=== PATIENT | female | born 1975 | race Caucasian/White ===

== ENCOUNTER 2020-02-18 14:34 | Emergency (ER) | payer BC, OTHER ==
[~2020-02-18] VITALS: Ht 157.5 cm; Wt 59.0 kg
[2020-02-18 14:47] VITALS: BP 164/91
[2020-02-18] MEDS ORDERED: NYST1000 PO (15:58)
== END 2020-02-18 16:15 | disposition home or self-care (01) ==
LOC: ER 14:35
DX: K14.6 Glossodynia (principal); Z88.1 Allergy status to other antibiotic agents; Z79.899 Other long term (current) drug therapy
CPT/HCPCS: 99283

== ENCOUNTER 2020-04-18 10:39 | Outpatient (CLI) | payer BC ==
[2020-04-18 11:20] LABS: BASOPHILS # (AUTO) 0.1 X10'3 (0-0.2); BASOPHILS % (AUTO) 1.2 % (0-1); EOSINOPHILS # (AUTO) 0.2 X10'3 (0-0.9); EOSINOPHILS % (AUTO) 3.5 % (0-6); HEMATOCRIT 34.6 % (35.0-45.0); HEMOGLOBIN 10.9 g/dl (12.0-16.0); LYMPHOCYTES # (AUTO) 1.8 X10'3 (1.1-4.8); MEAN CORPUSCULAR HEMOGLOBIN 24.9 PG (27.0-31.0); MEAN CORPUSCULAR HGB CONC 31.5 g/dL (33.0-36.5); MEAN PLATELET VOLUME 10.7 FL (7.4-10.4); MONOCYTES # (AUTO) 0.4 X10'3 (0-0.9); MONOCYTES % (AUTO) 7.9 % (2-12); NEUTROPHILS # (AUTO) 2.6 X10'3 (1.8-7.7); NEUTROPHILS % (AUTO) 51.4 % (42-75); PLATELET COUNT 236 X10'3 (140-440); RED BLOOD COUNT 4.38 X10'6 (4.20-5.60); RED CELL DISTRIBUTION WIDTH 18.3 % (11.5-14.5)
[2020-04-18 11:22] LABS: CLARITY,URINE CLOUDY (Clear); COLOR,URINE YELLOW (Yellow); GLUCOSE, URINE NEGATIVE (Neg); KETONES,URINE NEGATIVE (Neg); LEUKOCYTE ESTERASE ,URINE NEGATIVE (Neg); NITRITES, URINE NEGATIVE (Neg); OCCULT BLOOD,URINE TRACE-INTACT (Neg); PH,URINE 5.5 (4.8-8.0); PROTEIN,URINE NEGATIVE (Neg); UROBILINOGEN,URINE 0.2 E.U/dL (0.2-1.0)
[2020-04-18 11:29] LABS: UA COLLECTION TYPE NON-SPECIFIED
[2020-04-18 11:31] LABS: SQUAMOUS EPITHELIAL CELL,UR MANY /LPF (FEW)
[2020-04-18 11:32] LABS: BACTERIA,URINE 2+ /HPF (Neg)
[2020-04-18 11:33] LABS: RBC,URINE 0-2 /HPF (0-2); WBC,URINE 0-4 /HPF (0-4)
[2020-04-18 11:43] LABS: ANISOCYTOSIS 2+; LARGE PLATELETS FEW; MICROCYTOSIS 1+; PLATELET ESTIMATE NORMAL
[2020-04-18 11:44] LABS: ELLIPTOCYTES 1+
[2020-04-18 11:51] LABS: ALANINE AMINOTRANSFERASE 21 U/L (12-78); ALBUMIN 3.5 G/DL (3.4-5.0); ALKALINE PHOSPHATASE 53 IU/L (46-116); ANION GAP 9 (8-16); ASPARTATE AMINO TRANSFERASE 13 U/L (10-37); BILIRUBIN,TOTAL 0.4 MG/DL (0.1-1.0); BLOOD UREA NITROGEN 12 MG/DL (7-18); BUN/CREATININE RATIO 14.3 (6.6-38.0); CALCIUM 8.7 MG/DL (8.5-10.1); CHLORIDE 108 MMOL/L (99-107); CREATININE 0.84 MG/DL (0.40-0.90); GLUCOSE 89 MG/DL (70-104); POTASSIUM 4.5 MMOL/L (3.5-5.1); SODIUM 142 MMOL/L (135-145); TOTAL CARBON DIOXIDE 25.2 MMOL/L (24-32); TOTAL PROTEIN 6.9 G/DL (6.4-8.2); eGFR 73 ML/MIN
== END 2020-04-18 23:59 | disposition home or self-care (01) ==
LOC: EEVIPCON 10:39 → LAB 10:39
PROVIDERS: ATTEND Family Medicine
DX: Z00.01 Encounter for general adult medical examination with abnormal findings (principal)
CPT/HCPCS: 36415; 80053; 81001; 84439; 84443; 85008; 85025

== ENCOUNTER 2020-05-06 14:49 | Outpatient (CLI) | payer BC ==
[2020-05-06 16:29] LABS: % IRON SATURATION 11 % (11-46); IRON 43 UG/DL (49-151); TOTAL IRON BINDING CAPACITY 376 UG/DL (259-388)
== END 2020-05-06 23:59 | disposition home or self-care (01) ==
LOC: LAB 14:49
PROVIDERS: ATTEND Family Medicine
DX: D64.9 Anemia, unspecified (principal)
CPT/HCPCS: 36415; 83540; 83550

== ENCOUNTER 2020-08-29 14:02 | Outpatient (CLI) | payer BC | END 2020-08-29 23:59 | disposition home or self-care (01) | LOC: CARD DIAG 14:02 | PROVIDERS: ATTEND Nurse Practitioner Family | DX: I35.1 Nonrheumatic aortic (valve) insufficiency (principal) | CPT/HCPCS: 93306 ==

== ENCOUNTER 2020-09-03 05:26 | Outpatient (CLI) | payer BC ==
[2020-09-03 06:03] LABS: ALANINE AMINOTRANSFERASE 17 U/L (12-78); ALBUMIN 3.5 G/DL (3.4-5.0); ALKALINE PHOSPHATASE 56 IU/L (46-116); ANION GAP 8 (8-16); ASPARTATE AMINO TRANSFERASE 14 U/L (10-37); BILIRUBIN,TOTAL 0.2 MG/DL (0.1-1.0); BLOOD UREA NITROGEN 8 MG/DL (7-18); BUN/CREATININE RATIO 9.1 (6.6-38.0); CALCIUM 8.3 MG/DL (8.5-10.1); CHLORIDE 108 MMOL/L (99-107); CHOL/HDL RATIO 3.3 (0.00-4.99); CHOLESTEROL 214 MG/DL (0-200); CREATININE 0.88 MG/DL (0.40-0.90); GLUCOSE 96 MG/DL (70-104); HDL CHOLESTEROL 64 MG/DL (35-60); LDL CHOLESTEROL 122 MG/DL (50-100); SODIUM 144 MMOL/L (135-145); TOTAL CARBON DIOXIDE 28.1 MMOL/L (24-32); TRIGLYCERIDES 94 MG/DL (20-135); eGFR 69 ML/MIN
== END 2020-09-03 23:59 | disposition home or self-care (01) ==
LOC: LAB 05:26
PROVIDERS: ATTEND Nurse Practitioner Family
DX: R00.2 Palpitations (principal)
CPT/HCPCS: 36415; 80053; 80061

== ENCOUNTER 2020-09-11 11:38 | Emergency (ER) | payer BC ==
[~2020-09-11] VITALS: Ht 157.5 cm; Wt 60.9 kg
[2020-09-11 12:09] LABS: BASOPHILS % (AUTO) 0.4 % (0-1); EOSINOPHILS # (AUTO) 0.2 X10'3 (0-0.9); EOSINOPHILS % (AUTO) 2.3 % (0-6); HEMOGLOBIN 11.8 g/dl (12.0-16.0); LYMPHOCYTES # (AUTO) 3.1 X10'3 (1.1-4.8); LYMPHOCYTES % (AUTO) 29.4 % (21-51); MEAN CORPUSCULAR HEMOGLOBIN 25.4 PG (27.0-31.0); MEAN CORPUSCULAR VOLUME 79.4 FL (78-98); MEAN PLATELET VOLUME 10.6 FL (7.4-10.4); MONOCYTES # (AUTO) 0.7 X10'3 (0-0.9); MONOCYTES % (AUTO) 6.9 % (2-12); NEUTROPHILS # (AUTO) 6.4 X10'3 (1.8-7.7); PLATELET COUNT 253 X10'3 (140-440); RED BLOOD COUNT 4.66 X10'6 (4.20-5.60); RED CELL DISTRIBUTION WIDTH 17.7 % (11.5-14.5); WHITE BLOOD COUNT 10.4 X10'3 (4.5-11.0)
[2020-09-11 12:24] LABS: ALANINE AMINOTRANSFERASE 21 U/L (12-78); ALBUMIN 3.9 G/DL (3.4-5.0); ALBUMIN/GLOBULIN RATIO 1.1 (1.1-1.5); ALKALINE PHOSPHATASE 55 IU/L (46-116); ANION GAP 13 (8-16); ASPARTATE AMINO TRANSFERASE 14 U/L (10-37); BILIRUBIN,TOTAL 0.3 MG/DL (0.1-1.0); BLOOD UREA NITROGEN 9 MG/DL (7-18); CALCIUM 9.1 MG/DL (8.5-10.1); CHLORIDE 104 MMOL/L (99-107); CREATININE 0.82 MG/DL (0.40-0.90); GLUCOSE 103 MG/DL (70-104); SODIUM 139 MMOL/L (135-145); TOTAL CARBON DIOXIDE 22.2 MMOL/L (24-32); TOTAL PROTEIN 7.5 G/DL (6.4-8.2); eGFR 75 ML/MIN
[2020-09-11 12:35] LABS: ANISOCYTOSIS 1+; ELLIPTOCYTES 1+; LARGE PLATELETS FEW; MICROCYTOSIS 1+; PLATELET ESTIMATE NORMAL; SCHISTOCYTES FEW
[2020-09-11 12:41] LABS: D-DIMER 0.36 MG/L FEU (0-0.50)
[2020-09-11] MEDS ORDERED: ondansetron/PF 4mg/2ml inj IV ONE (13:15)
[2020-09-11] MEDS ORDERED: morphine 4 MG/ML inj SYRINge IV PRN (13:15)
[2020-09-11] MEDS ORDERED: ketorolac trometh. 30mg/ml inj. IV ONE ×2 (13:15→17:20)
[2020-09-11] MEDS ORDERED: fentaNYL/PF 50MCG/1 ML 2ML syringe IV ONE (14:45)
--- NOTE | 2020-09-11 15:00 | NUR ---
PT MEDICATED FOR RIGHT BREAST/CHEST PAIN
[2020-09-11 15:18] VITALS: BP 121/80
[2020-09-11] MEDS ORDERED: HYDR-3972 PO (16:12)
[2020-09-11] MEDS ORDERED: iohexol 300mg/ml 100ml inj. ONE (16:14)
[2020-09-11] MEDS ORDERED: nitroGLYCERIN 0.4mg SUBLingual tab SL PRN (17:00)
[2020-09-11] MEDS ORDERED: HYDROcodone/acetaminophen 10/325mg tab PO ONE (17:20)
[2020-09-11] MEDS ORDERED: methylPREDNISolone sod succ 125mg/2ml vial IV ONE (17:20)
[2020-09-11] MEDS ORDERED: ONDA4TAB6 PO (17:25)
== END 2020-09-11 18:25 | disposition home or self-care (01) ==
LOC: ER 11:38 → EEVIPCON 11:38 → ER 18:25
DX: R07.89 Other chest pain (principal); F17.200 Nicotine dependence, unspecified, uncomplicated; Z88.1 Allergy status to other antibiotic agents; Z88.8 Allergy status to other drugs, medicaments and biological substances
CPT/HCPCS: 36415; 71045; 71260; 80053; 83880; 84484; 85008; 85025; 85379; 93005; 96374; 96375; 99285; J1885; J2270; J2405; J2930; J3010; Q9967

== ENCOUNTER 2020-10-03 14:42 | Outpatient (CLI) | payer BC ==
[~2020-10-03 14:42] MED LIST: ONDA4TAB6 PO
[2020-10-03 16:08] LABS: C-REACTIVE PROTEIN < 0.05 MG/DL (0.0-0.5)
== END 2020-10-03 23:59 | disposition home or self-care (01) ==
LOC: LAB 14:42
PROVIDERS: ATTEND Family Medicine
DX: F41.9 Anxiety disorder, unspecified (principal); R07.9 Chest pain, unspecified; G47.00 Insomnia, unspecified
CPT/HCPCS: 36415; 85651; 86038; 86140

== ENCOUNTER 2021-03-18 08:46 | Emergency (ER) | payer BC ==
[~2021-03-18] VITALS: Ht 157.5 cm; Wt 60.0 kg
[2021-03-18 09:28] VITALS: BP 135/88
[2021-03-18] MEDS ORDERED: dexamethasone sod phosphate 10mg/ml inj PO STA (10:19)
[2021-03-18] MEDS ORDERED: METH4TAB3 PO (10:28)
[2021-03-18] MEDS ORDERED: LIDO20SO16 PO (10:28)
== END 2021-03-18 10:30 | disposition home or self-care (01) ==
LOC: EEVIPCON 08:47 → ER 08:47
DX: J02.9 Acute pharyngitis, unspecified (principal); I48.91 Unspecified atrial fibrillation; Z20.822 Contact with and (suspected) exposure to COVID-19; Z88.1 Allergy status to other antibiotic agents; Z88.8 Allergy status to other drugs, medicaments and biological substances; Z79.899 Other long term (current) drug therapy
CPT/HCPCS: 71045; 87081; 87635; 87880; 99284; C9803; J1100

== ENCOUNTER 2021-04-02 15:15 | Outpatient (CLI) | payer BC ==
[~2021-04-02 15:15] MED LIST changes: +LIDO20SO16 PO; +METH4TAB3 PO
[2021-04-02 16:14] LABS: BASOPHILS % (AUTO) 0.5 % (0-1); EOSINOPHILS # (AUTO) 0.2 X10'3 (0-0.9); EOSINOPHILS % (AUTO) 2.5 % (0-6); HEMATOCRIT 32.3 % (35.0-45.0); HEMOGLOBIN 10.3 g/dl (12.0-16.0); LYMPHOCYTES # (AUTO) 2.1 X10'3 (1.1-4.8); LYMPHOCYTES % (AUTO) 29.8 % (21-51); MEAN CORPUSCULAR HEMOGLOBIN 25.3 PG (27.0-31.0); MEAN CORPUSCULAR VOLUME 79.1 FL (78-98); MEAN PLATELET VOLUME 10.1 FL (7.4-10.4); MONOCYTES # (AUTO) 0.5 X10'3 (0-0.9); MONOCYTES % (AUTO) 7.6 % (2-12); NEUTROPHILS # (AUTO) 4.1 X10'3 (1.8-7.7); NEUTROPHILS % (AUTO) 59.6 % (42-75); PLATELET COUNT 307 X10'3 (140-440); RED BLOOD COUNT 4.08 X10'6 (4.20-5.60); RED CELL DISTRIBUTION WIDTH 18.9 % (11.5-14.5); WHITE BLOOD COUNT 6.9 X10'3 (4.5-11.0)
[2021-04-02 17:27] LABS: ANISOCYTOSIS 2+; MICROCYTOSIS 1+; PLATELET ESTIMATE NORMAL
[2021-04-02 17:28] LABS: ELLIPTOCYTES FEW; SCHISTOCYTES FEW
== END 2021-04-02 23:59 | disposition home or self-care (01) ==
LOC: LAB 15:15
PROVIDERS: ATTEND Family Medicine
DX: Z00.01 Encounter for general adult medical examination with abnormal findings (principal)
CPT/HCPCS: 36415; 83540; 83550; 84439; 84443; 85008; 85025

== ENCOUNTER 2021-07-03 11:30 | Outpatient (CLI) | payer BC ==
[2021-07-03 11:57] LABS: BASOPHILS % (AUTO) 0.7 % (0-1); EOSINOPHILS # (AUTO) 0.4 X10'3 (0-0.9); EOSINOPHILS % (AUTO) 6.2 % (0-6); HEMATOCRIT 35.2 % (35.0-45.0); HEMOGLOBIN 11.2 g/dl (12.0-16.0); LYMPHOCYTES # (AUTO) 2.3 X10'3 (1.1-4.8); LYMPHOCYTES % (AUTO) 36.3 % (21-51); MEAN CORPUSCULAR HEMOGLOBIN 24.6 PG (27.0-31.0); MEAN CORPUSCULAR HGB CONC 31.7 g/dL (33.0-36.5); MEAN CORPUSCULAR VOLUME 77.5 FL (78-98); MEAN PLATELET VOLUME 10.4 FL (7.4-10.4); MONOCYTES # (AUTO) 0.5 X10'3 (0-0.9); MONOCYTES % (AUTO) 7.5 % (2-12); NEUTROPHILS # (AUTO) 3.1 X10'3 (1.8-7.7); NEUTROPHILS % (AUTO) 49.3 % (42-75); PLATELET COUNT 262 X10'3 (140-440); RED BLOOD COUNT 4.55 X10'6 (4.20-5.60); RED CELL DISTRIBUTION WIDTH 18.1 % (11.5-14.5); WHITE BLOOD COUNT 6.4 X10'3 (4.5-11.0)
[2021-07-03 12:07] LABS: CLARITY,URINE SLIGHTLY CLOUDY (Clear); COLOR,URINE YELLOW (Yellow); GLUCOSE, URINE NEGATIVE (Neg); KETONES,URINE NEGATIVE (Neg); LEUKOCYTE ESTERASE ,URINE NEGATIVE (Neg); NITRITES, URINE NEGATIVE (Neg); OCCULT BLOOD,URINE SMALL (Neg); PH,URINE 5.5 (4.8-8.0); PROTEIN,URINE NEGATIVE (Neg); UROBILINOGEN,URINE 0.2 E.U/dL (0.2-1.0)
[2021-07-03 12:10] LABS: UA COLLECTION TYPE NON-SPECIFIED
[2021-07-03 12:29] LABS: % IRON SATURATION 14 % (11-46); IRON 68 UG/DL (49-151); TOTAL IRON BINDING CAPACITY 490 UG/DL (259-388)
[2021-07-03 12:33] LABS: MUCUS STRANDS FEW /LPF (Neg); SQUAMOUS EPITHELIAL CELL,UR MODERATE /LPF (FEW)
[2021-07-03 12:34] LABS: BACTERIA,URINE FEW /HPF (Neg); RBC,URINE 0-2 /HPF (0-2); WBC,URINE 0-4 /HPF (0-4)
[2021-07-03 12:47] LABS: ALANINE AMINOTRANSFERASE 21 U/L (12-78); ALBUMIN 3.7 G/DL (3.4-5.0); ALKALINE PHOSPHATASE 51 IU/L (46-116); ANION GAP 11 (8-16); ASPARTATE AMINO TRANSFERASE 17 U/L (10-37); BILIRUBIN,TOTAL 0.4 MG/DL (0.1-1.0); BLOOD UREA NITROGEN 13 MG/DL (7-18); BUN/CREATININE RATIO 15.1 (6.6-38.0); CALCIUM 9.3 MG/DL (8.5-10.1); CHLORIDE 105 MMOL/L (99-107); CREATININE 0.86 MG/DL (0.40-0.90); GLUCOSE 95 MG/DL (70-104); POTASSIUM 4.3 MMOL/L (3.5-5.1); SODIUM 140 MMOL/L (135-145); TOTAL CARBON DIOXIDE 24.2 MMOL/L (24-32); TOTAL PROTEIN 7.5 G/DL (6.4-8.2); eGFR 70 ML/MIN
[2021-07-03 12:55] LABS: CHOL/HDL RATIO 3.5 (0.00-4.99); CHOLESTEROL 264 MG/DL (0-200); HDL CHOLESTEROL 76 MG/DL (35-60); LDL CHOLESTEROL 150 MG/DL (50-100); TRIGLYCERIDES 134 MG/DL (20-135)
== END 2021-07-03 23:59 | disposition home or self-care (01) ==
LOC: LAB 11:30
PROVIDERS: ATTEND Family Medicine
DX: I48.0 Paroxysmal atrial fibrillation (principal); D50.9 Iron deficiency anemia, unspecified; I10 Essential (primary) hypertension; K21.9 Gastro-esophageal reflux disease without esophagitis; R53.83 Other fatigue
CPT/HCPCS: 36415; 80053; 80061; 81001; 83540; 83550; 84439; 84443; 85025

== ENCOUNTER 2021-11-20 07:50 | Outpatient (CLI) | payer BC ==
[2021-11-20 08:48] LABS: CLARITY,URINE SLIGHTLY CLOUDY (Clear); COLOR,URINE YELLOW (Yellow); GLUCOSE, URINE NEGATIVE (Neg); KETONES,URINE NEGATIVE (Neg); LEUKOCYTE ESTERASE ,URINE NEGATIVE (Neg); NITRITES, URINE NEGATIVE (Neg); OCCULT BLOOD,URINE NEGATIVE (Neg); PROTEIN,URINE NEGATIVE (Neg); UROBILINOGEN,URINE 0.2 E.U/dL (0.2-1.0)
[2021-11-20 08:50] LABS: UA COLLECTION TYPE CLN CATCH MIDSTREAM
[2021-11-20 08:54] LABS: BACTERIA,URINE 1+ /HPF (Neg); MUCUS STRANDS NONE SEEN /LPF (Neg); RBC,URINE NONE SEEN /HPF (0-2); SQUAMOUS EPITHELIAL CELL,UR MODERATE /LPF (FEW); WBC,URINE 0-4 /HPF (0-4)
[2021-11-20 08:55] LABS: BASOPHILS % (AUTO) 0.8 % (0-1); EOSINOPHILS # (AUTO) 0.3 X10'3 (0-0.9); EOSINOPHILS % (AUTO) 4.8 % (0-6); HEMATOCRIT 34.4 % (35.0-45.0); HEMOGLOBIN 10.9 g/dl (12.0-16.0); LYMPHOCYTES # (AUTO) 1.9 X10'3 (1.1-4.8); LYMPHOCYTES % (AUTO) 30.2 % (21-51); MEAN CORPUSCULAR HEMOGLOBIN 24.1 PG (27.0-31.0); MEAN CORPUSCULAR HGB CONC 31.8 g/dL (33.0-36.5); MEAN CORPUSCULAR VOLUME 75.8 FL (78-98); MEAN PLATELET VOLUME 10.5 FL (7.4-10.4); MONOCYTES # (AUTO) 0.4 X10'3 (0-0.9); NEUTROPHILS # (AUTO) 3.6 X10'3 (1.8-7.7); NEUTROPHILS % (AUTO) 57.2 % (42-75); PLATELET COUNT 336 X10'3 (140-440); RED BLOOD COUNT 4.54 X10'6 (4.20-5.60); RED CELL DISTRIBUTION WIDTH 18.6 % (11.5-14.5); WHITE BLOOD COUNT 6.3 X10'3 (4.5-11.0)
[2021-11-20 09:00] LABS: HEMOGLOBIN A1C 5.9 % (4.5-6.2)
[2021-11-20 09:16] LABS: ALANINE AMINOTRANSFERASE 38 U/L (12-78); ALBUMIN 3.7 G/DL (3.4-5.0); ALBUMIN/GLOBULIN RATIO 0.9 (1.1-1.5); ALKALINE PHOSPHATASE 59 IU/L (46-116); ANION GAP 8 (8-16); ASPARTATE AMINO TRANSFERASE 20 U/L (10-37); BILIRUBIN,TOTAL 0.4 MG/DL (0.1-1.0); BLOOD UREA NITROGEN 12 MG/DL (7-18); BUN/CREATININE RATIO 12.5 (6.6-38.0); CALCIUM 8.8 MG/DL (8.5-10.1); CHLORIDE 105 MMOL/L (99-107); CHOL/HDL RATIO 3.3 (0.00-4.99); CHOLESTEROL 207 MG/DL (0-200); CREATININE 0.96 MG/DL (0.40-0.90); GLUCOSE 102 MG/DL (70-104); HDL CHOLESTEROL 62 MG/DL (35-60); LDL CHOLESTEROL 113 MG/DL (50-100); POTASSIUM 4.1 MMOL/L (3.5-5.1); SODIUM 139 MMOL/L (135-145); TOTAL CARBON DIOXIDE 26.3 MMOL/L (24-32); TOTAL PROTEIN 7.9 G/DL (6.4-8.2); TRIGLYCERIDES 124 MG/DL (20-135); eGFR 62 ML/MIN
[2021-11-20 09:30] LABS: H PYLORI ANTIBODY POSITIVE (Neg)
[2021-11-20 09:32] LABS: ANISOCYTOSIS 2+; ELLIPTOCYTES FEW; HYPOCHROMASIA 1+; MICROCYTOSIS 1+; PLATELET ESTIMATE NORMAL
[2021-11-20 09:33] LABS: POLYCHROMASIA FEW
[2021-11-21 09:09] LABS: PROGESTERONE 0.2 ng/mL (.)
[2021-11-24 11:49] LABS: ESTRONE, SERUM 68 pg/mL (.)
[2021-11-26 13:12] LABS: T-TRANSGLUTAMINASE IGA 2 U/mL (0-3)
== END 2021-11-20 23:59 | disposition home or self-care (01) ==
LOC: LAB 07:50
PROVIDERS: ATTEND Nurse Practitioner
DX: Z13.820 Encounter for screening for osteoporosis (principal); D50.9 Iron deficiency anemia, unspecified; L40.9 Psoriasis, unspecified; M25.562 Pain in left knee; M54.9 Dorsalgia, unspecified; K58.9 Irritable bowel syndrome, unspecified; R14.0 Abdominal distension (gaseous); K12.0 Recurrent oral aphthae; F41.9 Anxiety disorder, unspecified; G47.00 Insomnia, unspecified; R20.0 Anesthesia of skin; R13.10 Dysphagia, unspecified; K13.79 Other lesions of oral mucosa; I48.0 Paroxysmal atrial fibrillation; M25.561 Pain in right knee; I10 Essential (primary) hypertension; Z95.1 Presence of aortocoronary bypass graft
CPT/HCPCS: 36415; 80053; 80061; 81001; 82306; 82607; 82670; 82679; 82746; 83036; 83520; 84144; 84402; 84403; 84439; 84443; 84484; 85008; 85025; 86140; 86677

== ENCOUNTER 2022-07-13 08:53 | Outpatient (CLI) | payer BC | END 2022-07-13 23:59 | disposition home or self-care (01) | LOC: RAD 08:53 | PROVIDERS: ATTEND Nurse Practitioner | DX: J34.2 Deviated nasal septum (principal); J34.89 Other specified disorders of nose and nasal sinuses; R06.83 Snoring; J33.9 Nasal polyp, unspecified; R06.89 Other abnormalities of breathing | CPT/HCPCS: 70486 ==

== ENCOUNTER → 2022-10-29 | Outpatient (CLI) | payer BC ==
[~2022-10-29] MED LIST changes: +IXEK80AU2; -LIDO20SO16 PO; +LOP25T PO; -METH4TAB3 PO; -ONDA4TAB6 PO
== END | disposition home or self-care (01) ==
LOC: RAD 14:37
PROVIDERS: ATTEND Nurse Practitioner
DX: M47.817 Spondylosis without myelopathy or radiculopathy, lumbosacral region (principal); M48.07 Spinal stenosis, lumbosacral region; M47.812 Spondylosis without myelopathy or radiculopathy, cervical region; M50.221 Other cervical disc displacement at C4-C5 level; M50.223 Other cervical disc displacement at C6-C7 level; M54.9 Dorsalgia, unspecified; R27.8 Other lack of coordination
CPT/HCPCS: 72141; 72148

== ENCOUNTER 2023-02-28 14:56 | Outpatient (CLI) | payer BC | END 2023-02-28 23:59 | disposition home or self-care (01) | LOC: CARD DIAG 14:56 | PROVIDERS: ATTEND Internal Medicine Cardiovascular Disease | DX: I34.81 Nonrheumatic mitral (valve) annulus calcification (principal); I34.0 Nonrheumatic mitral (valve) insufficiency; R06.02 Shortness of breath; R53.83 Other fatigue | CPT/HCPCS: 93306; 93880 ==

== ENCOUNTER 2023-03-04 16:25 | Outpatient (CLI) | payer BC | END 2023-03-04 23:59 | disposition home or self-care (01) | LOC: RAD 16:25 | PROVIDERS: ATTEND Physician Assistant | DX: R07.81 Pleurodynia (principal) | CPT/HCPCS: 71100 ==

== ENCOUNTER 2023-06-03 07:59 | Outpatient (CLI) | payer BC ==
[2023-06-03] VITALS (7 sets, daily range): BP systolic 117–148; BP diastolic 77–96; PULSE 71–124; RESP 18; O2SAT 100
[~2023-06-03] VITALS: Ht 157.5 cm; Wt 68.0 kg
[~2023-06-03 07:59] MED LIST changes: -regadenoson 0.4mg/5ml syringe IV ONE
[2023-06-03] MEDS ORDERED: regadenoson 0.4mg/5ml syringe IV ONE (09:20)
[2023-06-03] MEDS ORDERED: normal saline 500ml IV soln 500 ML IV ONE (09:20)
[2023-06-03] MEDS ORDERED: nitroGLYCERIN 0.4mg SUBLingual tab SL PRN (09:20)
[2023-06-03] MEDS ORDERED: aminophylline 250mg/10ml inj. IV PRN (09:20)
== END 2023-06-06 01:55 | disposition home or self-care (01) ==
LOC: RAD 07:59
PROVIDERS: ATTEND Internal Medicine Cardiovascular Disease
DX: R07.89 Other chest pain (principal); R06.02 Shortness of breath; R53.83 Other fatigue; R00.2 Palpitations
CPT/HCPCS: 78452; 93017; A9500; J2785; J7040; J0280

== ENCOUNTER → 2023-06-03 | Outpatient (CLI) | payer BC ==
[~2023-06-03] MED LIST changes: +regadenoson 0.4mg/5ml syringe IV ONE
[2023-06-03 11:35] LABS: BASOPHILS % (AUTO) 0.4 % (0-1); EOSINOPHILS # (AUTO) 0.1 X10'3 (0-0.9); EOSINOPHILS % (AUTO) 1.2 % (0-6); HEMOGLOBIN 12.9 g/dl (12.0-16.0); LYMPHOCYTES # (AUTO) 2.2 X10'3 (1.1-4.8); LYMPHOCYTES % (AUTO) 29.3 % (21-51); MEAN CORPUSCULAR HEMOGLOBIN 27.6 PG (27.0-31.0); MEAN CORPUSCULAR HGB CONC 32.2 g/dL (33.0-36.5); MEAN CORPUSCULAR VOLUME 85.8 FL (78-98); MONOCYTES # (AUTO) 0.5 X10'3 (0-0.9); MONOCYTES % (AUTO) 6.2 % (2-12); NEUTROPHILS # (AUTO) 4.8 X10'3 (1.8-7.7); NEUTROPHILS % (AUTO) 62.9 % (42-75); PLATELET COUNT 227 X10'3 (140-440); RED BLOOD COUNT 4.66 X10'6 (4.20-5.60); RED CELL DISTRIBUTION WIDTH 16.7 % (11.5-14.5); WHITE BLOOD COUNT 7.6 X10'3 (4.5-11.0)
[2023-06-03 12:26] LABS: ANION GAP 12 (8-16); CHLORIDE 104 MMOL/L (99-107); GLUCOSE 87 MG/DL (70-104); POTASSIUM 3.7 MMOL/L (3.5-5.1); SODIUM 140 MMOL/L (135-145); TOTAL CARBON DIOXIDE 24.2 MMOL/L (24-32)
[2023-06-03 12:27] LABS: ALANINE AMINOTRANSFERASE 19 U/L (12-78); ALBUMIN 3.6 G/DL (3.4-5.0); ALKALINE PHOSPHATASE 47 IU/L (46-116); ASPARTATE AMINO TRANSFERASE 11 U/L (10-37); BILIRUBIN,TOTAL 0.4 MG/DL (0.1-1.0); BLOOD UREA NITROGEN 12 MG/DL (7-18); BUN/CREATININE RATIO 16.2 (10.0-20.0); CALCIUM 8.9 MG/DL (8.5-10.1); CHOLESTEROL 225 MG/DL (0-200); CREATININE 0.74 MG/DL (0.40-0.90); FREE T4 (FREE THYROXINE) 0.88 NG/DL (0.73-1.40); HDL CHOLESTEROL 56 MG/DL (35-60); LDL CHOLESTEROL 134 MG/DL (50-100); THYROID STIMULATING HORMONE 1.37 ulU/ml (0.34-4.50); TOTAL PROTEIN 7.3 G/DL (6.4-8.2); TRIGLYCERIDES 95 MG/DL (20-135); eGFR 83 ML/MIN
[2023-06-03 12:39] LABS: LARGE PLATELETS FEW; PLATELET ESTIMATE NORMAL
[2023-06-03 12:40] LABS: ANISOCYTOSIS 1+; ELLIPTOCYTES FEW
[2023-06-03 13:13] LABS: HEMOGLOBIN A1C 5.3 % (4.5-6.2)
== END | disposition home or self-care (01) ==
LOC: LAB 08:05
PROVIDERS: ATTEND Nurse Practitioner Family
DX: Z00.01 Encounter for general adult medical examination with abnormal findings (principal); Z13.1 Encounter for screening for diabetes mellitus; R53.83 Other fatigue; E78.5 Hyperlipidemia, unspecified
CPT/HCPCS: 36415; 80053; 80061; 83036; 84439; 84443; 85008; 85025

== ENCOUNTER 2023-06-27 08:31 | Outpatient (CLI) | payer BC ==
[2023-06-27] MEDS ORDERED: GADOTERATE MEGLUMINE 7.5 MMOL/15 ML VIAL IV ONE (12:40)
== END 2023-06-27 23:59 | disposition home or self-care (01) ==
LOC: RAD 08:31
PROVIDERS: ATTEND Neurological Surgery
DX: M51.27 Other intervertebral disc displacement, lumbosacral region (principal); M51.24 Other intervertebral disc displacement, thoracic region; M47.817 Spondylosis without myelopathy or radiculopathy, lumbosacral region; M48.07 Spinal stenosis, lumbosacral region; G95.0 Syringomyelia and syringobulbia
CPT/HCPCS: 72148; 72157; A9575

== ENCOUNTER 2023-11-04 09:23 | Outpatient (CLI) | payer BC | END 2023-11-04 23:59 | disposition home or self-care (01) | LOC: VAS 09:23 | PROVIDERS: ATTEND Student in an Organized Health Care Education/Training Program | DX: R60.0 Localized edema (principal) | CPT/HCPCS: 93971 ==

== ENCOUNTER 2023-12-13 08:22 | Outpatient (CLI) | payer BC ==
[2023-12-13 10:09] LABS: CHOL/HDL RATIO 3.7 (0.00-4.99); CHOLESTEROL 177 MG/DL (0-200); HDL CHOLESTEROL 48 MG/DL (35-60); LDL CHOLESTEROL 109 MG/DL (50-100); TRIGLYCERIDES 68 MG/DL (20-135)
[2023-12-14 15:21] LABS: ESTRADIOL 20.6 pg/mL (.); FSH, SERUM 62.5 mIU/mL (.); LUTEINIZING HORMONE 22.6 mIU/mL (.)
== END 2023-12-13 23:59 | disposition home or self-care (01) ==
LOC: LAB 08:22
PROVIDERS: ATTEND Nurse Practitioner Family
DX: E78.5 Hyperlipidemia, unspecified (principal); E55.9 Vitamin D deficiency, unspecified; R53.83 Other fatigue
CPT/HCPCS: 36415; 80061; 82306; 82670; 82672; 83001; 83002

== ENCOUNTER 2024-01-24 10:25 | Outpatient (CLI) | payer BC ==
[2024-01-24 11:31] LABS: ALBUMIN 3.1 G/DL (3.4-5.0); ANION GAP 7 (8-16); BLOOD UREA NITROGEN 5 MG/DL (7-18); CALCIUM 8.3 MG/DL (8.5-10.1); CHLORIDE 112 MMOL/L (99-107); CREATININE 0.84 MG/DL (0.40-0.90); GLUCOSE 94 MG/DL (70-104); PRO BRAIN NATRIURETIC PEPTIDE 216 PG/ML (0-125); SODIUM 142 MMOL/L (135-145); TOTAL CARBON DIOXIDE 23.4 MMOL/L (24-32); eGFR 72 ML/MIN
== END 2024-01-24 23:59 | disposition home or self-care (01) ==
LOC: LAB 10:25
PROVIDERS: ATTEND Nurse Practitioner Family
DX: R60.0 Localized edema (principal)
CPT/HCPCS: 36415; 80048; 83880

== ENCOUNTER 2024-02-15 07:23 | Outpatient (CLI) | payer BC ==
[2024-02-15 09:00] LABS: ALBUMIN 3.1 G/DL (3.4-5.0); ANION GAP 8 (8-16); BLOOD UREA NITROGEN 9 MG/DL (7-18); CALCIUM 8.5 MG/DL (8.5-10.1); CHLORIDE 108 MMOL/L (99-107); CREATININE 0.75 MG/DL (0.40-0.90); GLUCOSE 87 MG/DL (70-104); POTASSIUM 3.9 MMOL/L (3.5-5.1); PRO BRAIN NATRIURETIC PEPTIDE 202 PG/ML (0-125); SODIUM 141 MMOL/L (135-145); TOTAL CARBON DIOXIDE 25.3 MMOL/L (24-32); eGFR 82 ML/MIN
[2024-02-16 13:52] LABS: ESTRADIOL 77.2 pg/mL (.); PROGESTERONE 4.4 ng/mL (.)
== END 2024-02-15 23:59 | disposition home or self-care (01) ==
LOC: LAB 07:23
PROVIDERS: ATTEND Nurse Practitioner Family
DX: R60.0 Localized edema (principal); N95.1 Menopausal and female climacteric states
CPT/HCPCS: 36415; 80048; 82670; 83880; 84144

== ENCOUNTER 2024-02-22 09:28 | Outpatient (CLI) | payer BC | END 2024-02-22 23:59 | disposition home or self-care (01) | LOC: CARD DIAG 09:28 | PROVIDERS: ATTEND Student in an Organized Health Care Education/Training Program | DX: R00.2 Palpitations (principal); R42 Dizziness and giddiness; R53.83 Other fatigue | CPT/HCPCS: 93306 ==

== ENCOUNTER 2024-07-10 09:38 | Outpatient (CLI) | payer BC ==
[2024-07-10] VITALS (21 sets, daily range): BP systolic 118–145; BP diastolic 74–104; PULSE 63–90
== END 2024-07-10 23:59 | disposition home or self-care (01) ==
LOC: CARD DIAG 09:38
PROVIDERS: ATTEND Nurse Practitioner Family
DX: I95.9 Hypotension, unspecified (principal)
CPT/HCPCS: 93660

== ENCOUNTER 2024-11-20 14:16 | Outpatient (CLI) | payer BC ==
--- NOTE | 2024-11-21 13:03 | RADIOLOGY REPORT ---
PROCEDURE: MR MRI LUMBAR SPINE INDICATION: SYRINGOMYELIA AND SYRINGOBULBIA Exam Date: 11/20/2024 02:57 PM COMPARISON: MR MRI LUMBAR SPINE on DOS: 06/27/23, MRI LUMBAR SPINE on DOS: 10/29/22 TECHNIQUE: MRI lumbar spine without intravenous contrast. FINDINGS: Grade 1 retrolisthesis of L5 on S1. There are degenerative endplate changes including modic endplat e changes with anterior and lateral osteophytes throughout the lumbar spine. The visualized distal sp inal cord and conus medullaris are within normal limits. The conus medullaris appears to terminate w ithin normal limits. The visualized retroperitoneal and paraspinal soft tissues are unremarkable. The following axial levels are detailed below: T12-L1: Unremarkable. L1-L2: Unremarkable. L2-L3: Unremarkable. L3-L4: There is a mild circumferential disc bulge. No significant central canal or neuroforaminal s tenosis. L4-L5: There is a moderate circumferential disc bulge complicated by facet arthropathy associated w ith mild bilateral neuroforaminal stenosis. No significant central canal stenosis. L5-S1: There is a moderate circumferential disc bulge with a left paracentral component complicated by facet arthropathy associated with left lateral recess stenosis as well as mild to moderate bilater al neuroforaminal stenosis. Central canal measures 7 mm. IMPRESSION: 1. Mild degenerative disease lower lumbar levels. Grade 1 retrolisthesis of L5 on S1. Left paracentr al disc protrusion at L5-S1 contributes to moderate central canal stenosis and left lateral recess st enosis. Neural foraminal stenosis as above. Overall, findings are not significantly changed compare d to prior. HS:Y
--- NOTE | 2024-11-21 13:07 | RADIOLOGY REPORT ---
PROCEDURE: MR MRI THORACIC SPINE INDICATION: SYRINGOMYELIA AND SYRINGOBULBIA Exam Date: 11/20/2024 02:39 PM COMPARISON: MR MRI THORACIC SPINE on DOS: 06/27/23 TECHNIQUE: MRI thoracic spine without intravenous contrast. FINDINGS: The thoracic alignment is intact. The vertebral body heights are intact. There are degenerative en dplate changes with anterior and lateral osteophytes mid to lower thoracic levels. There is a syrinx extending from the upper thoracic spine into the lower thoracic spine measuring up to 2 mm. There is no significant posterior disc disease, central canal or neural foraminal narrowing. The visualized paraspinal soft tissues are otherwise unremarkable. Cyst or hemangioma in the right lobe of the liver partially imaged. IMPRESSION: 1. No significant posterior disc disease, central canal or neural foraminal narrowing. Mild degenerat guille disease. 2. Small syrinx from the upper thoracic spine to the lower thoracic spine measuring up to 2 mm. 3. Hepatic cyst or hemangioma partially imaged. HS:Y
--- NOTE | 2024-11-21 13:11 | RADIOLOGY REPORT ---
PROCEDURE: MR MRI C SPINE INDICATION: SYRINGOMYELIA AND SYRINGOBULBIA EXAM DATE: 11/20/2024 02:27 PM COMPARISON: MRI C SPINE on DOS: 10/29/22 TECHNIQUE: MRI cervical spine without intravenous contrast. FINDINGS: The cervical alignment is intact. There are degenerative endplate changes with anterior osteophytes mid to lower cervical levels. The visualized posterior fossa and craniocervical junction are intact. The intrinsic cervical cord signal appears intact. There is no prevertebral soft tissue swelling. The visualized paraspinal soft tissues are otherwise unremarkable. The following axial levels are detailed below: C2-C3: Unremarkable. C3-C4: Unremarkable. C4-C5: Mild posterior disc osteophyte complex complicated by facet arthropathy associated with mild to moderate bilateral neural foraminal stenosis. Central canal measures 9 mm. C5-C6: Unremarkable. C6-C7: Mild posterior disc osteophyte complex complicated by facet arthropathy associated with mild to moderate left neural foraminal stenosis. Central canal measures 9 mm. C7-T1: Unremarkable. IMPRESSION: 1. Mild degenerative disease. Mild central canal stenosis C4-5 and C6-7. Neural foraminal stenosis as above. 2. Intact cervical cord signal. No evidence of cord compression. HS:Y
== END 2024-11-20 23:59 | disposition home or self-care (01) ==
LOC: MRI02 14:16
PROVIDERS: ATTEND Nurse Practitioner Family
DX: Z00.01 Encounter for general adult medical examination with abnormal findings (principal); R73.03 Prediabetes; N95.1 Menopausal and female climacteric states; E78.5 Hyperlipidemia, unspecified; G95.0 Syringomyelia and syringobulbia; R27.8 Other lack of coordination; R00.2 Palpitations
CPT/HCPCS: 72141; 72146; 72148

== ENCOUNTER 2024-11-20 16:09 | Outpatient (CLI) | payer BC ==
[2024-11-20 16:36] LABS: LEUKOCYTE ESTERASE ,URINE NEGATIVE (Neg); NITRITES, URINE NEGATIVE (Neg); OCCULT BLOOD,URINE NEGATIVE (Neg)
[2024-11-20 16:44] LABS: MEAN PLATELET VOLUME 11.2 FL (7.4-10.4); RED CELL DISTRIBUTION WIDTH 18.6 % (11.5-14.5); UA COLLECTION TYPE NON-SPECIFIED
[2024-11-20 17:00] LABS: CHOL/HDL RATIO 3.4 (0.00-4.99); CREATININE 0.93 MG/DL (0.40-0.90); LDL CHOLESTEROL 123 MG/DL (50-100); TOTAL CARBON DIOXIDE 27.8 MMOL/L (24-32); eGFR 64 ML/MIN
[2024-11-20 17:13] LABS: PLATELET ESTIMATE NORMAL
[2024-11-20 17:14] LABS: ELLIPTOCYTES FEW; LARGE PLATELETS FEW
== END 2024-11-20 23:59 | disposition home or self-care (01) ==
LOC: RAD 16:09
PROVIDERS: ATTEND Nurse Practitioner Family
DX: Z00.01 Encounter for general adult medical examination with abnormal findings (principal); R73.03 Prediabetes; G21.0 Malignant neuroleptic syndrome; N95.1 Menopausal and female climacteric states; E78.5 Hyperlipidemia, unspecified; R00.2 Palpitations
CPT/HCPCS: 36415; 80053; 80061; 81003; 82306; 82652; 82670; 83001; 83002; 83036; 83735; 84144; 84439; 84443; 85008; 85025

== ENCOUNTER 2025-01-10 15:28 | Outpatient (CLI) | payer BC ==
--- NOTE | 2025-01-10 16:50 | RADIOLOGY REPORT ---
CLINICAL HISTORY: HEPATIC CYST TECHNIQUE: MRI of the abdomen was performed with and without IV contrast. COMPARISON: None. FINDINGS: The kidneys, adrenal glands, pancreas, and spleen are grossly unremarkable. The gallbladder is absent. The liver smooth in contour ra with no obscure hepatic steatosis. There is a 2.8 cm T2 hyperintense likely lobular lesion within the right hepatic lobe. The abdominal aorta is normal in course and caliber. There is no free intraperitoneal fluid. No enlarged lymph node is see n. there are bilateral breast implants. IMPRESSION: 2.8 cm T2 hyperintense lesion within the right hepatic lobe, which statistically most likely represents a benign lesion such as a hemangioma or cyst. Other possibilities cannot be excluded. Contrast enhanced MRI can provide definitive diagnosis.
== END 2025-01-10 23:59 | disposition home or self-care (01) ==
LOC: MRI02 15:28
PROVIDERS: ATTEND Nurse Practitioner Family
DX: K76.89 Other specified diseases of liver (principal)
CPT/HCPCS: 74181

== ENCOUNTER 2025-01-23 15:16 | Outpatient (CLI) | payer BC ==
[2025-01-22 16:29] LABS: CREATININE 0.68 MG/DL (0.40-0.90); TOTAL CARBON DIOXIDE 26.1 MMOL/L (24-32); eGFR > 90 ML/MIN
[2025-01-23] MEDS ORDERED: GADOTERATE MEGLUMINE 7.5 MMOL/15 ML VIAL IV ONE (17:41)
--- NOTE | 2025-01-23 20:32 | RADIOLOGY REPORT ---
EXAM: MR MRI ABDOMEN HISTORY: LIVER DISEASE COMPARISON: MR MRI ABDOMEN on DOS: 01/10/25 TECHNIQUE: Multiplanar, multisequence imaging of the abdomen was performed with and without contrast. FINDINGS: [LOWER CHEST]: No pleural effusion. intact bilateral breast implants. [LIVER]: Cavernous hemangioma in the right hepatic lobe measuring 1.8 cm. Lesion demonstrates progressive fill-in and peripheral discontinuous nodular enhancement. No hepatic steatosis. [SPLEEN]: Unremarkable. [PANCREAS]: The pancreas is normal in appearance without focal lesions. Normal pancreatic duct size. [GALLBLADDER AND DUCTS]: Gallbladder is normal in appearance. The cystic duct, right and left hepatic ducts, common hepatic duct, and common bile ducts are unremarkable. [ADRENAL GLANDS]: Unremarkable. [KIDNEYS]: Normal enhancement without suspicious lesions or hydronephrosis. [VISUALIZED BOWEL]: Grossly unremarkable. [VASCULATURE]: Unremarkable. [LYMPHADENOPATHY]: No evidence for lymphadenopathy. [ASCITES]: Absent. [MUSCULOSKELETAL]: Bone marrow signal is normal. [OTHER]: None IMPRESSION: 1. No hepatic steatosis or definitive iron deposition. 2. Right liver cavernous hemangioma. No suspicious liver lesion.
== END 2025-01-23 23:59 | disposition home or self-care (01) ==
LOC: MRI 15:16
PROVIDERS: ATTEND Nurse Practitioner Family
DX: D18.03 Hemangioma of intra-abdominal structures (principal); K76.9 Liver disease, unspecified
CPT/HCPCS: 36415; 74183; 80053; A9575

== ENCOUNTER 2025-03-26 08:23 | Outpatient (CLI) | payer BC ==
[2025-03-26 08:53] LABS: MEAN PLATELET VOLUME 10.6 FL (7.4-10.4); RED CELL DISTRIBUTION WIDTH 16.6 % (11.5-14.5)
[2025-03-26 09:11] LABS: APTT 25 SECONDS (22-32); INR 1.0 INR
[2025-03-26 09:12] LABS: CREATININE 0.92 MG/DL (0.40-0.90); TOTAL CARBON DIOXIDE 26.9 MMOL/L (24-32); eGFR 64 ML/MIN
--- NOTE | 2025-03-26 09:22 | RADIOLOGY REPORT ---
CHEST RADIOGRAPH Indication: PRE-OP RESPIRATORY Technique: Two views of the chest was obtained. Comparison: DI RIBS,UNILAT on DOS: 03/04/23 Findings: No focal consolidation. No significant pleural effusion. No pneumothorax. Nonenlarged cardiomediastinal silhouette. IMPRESSION: No acute pulmonary process.
== END 2025-03-26 23:59 | disposition home or self-care (01) ==
LOC: RAD 08:23
PROVIDERS: ATTEND Neurological Surgery
DX: Z01.818 Encounter for other preprocedural examination (principal); M51.26 Other intervertebral disc displacement, lumbar region
CPT/HCPCS: 36415; 71046; 80053; 85025; 85610; 85730